=== PATIENT | female | born 1990 | race African-American/Black ===

== ENCOUNTER 2017-03-17 05:14 | Inpatient (IN) ==
--- NOTE | 2017-03-16 16:41 | HISTORY AND PHYSICAL ---
PREOPERATIVE DIAGNOSES: 1. Term . 2. Previous delivery for repeat. CONDITION: Stable. HISTORY OF PRESENT ILLNESS: Ms. Alcantara is a 26-year-old 2, para 1, with estimated date of delivery of 03/24/2017 who presents for a repeat delivery. She has had care since approximately 16 weeks and I do not see her labs documented in the usual place but I now have them, blood type B positive, hepatitis B negative, RPR nonreactive, HIV negative, rubella immune. She passed her glucose tolerance test, and her GBS is negative. PAST MEDICAL HISTORY: Significant for anxiety. PAST SURGICAL HISTORY: delivery. Tonsillectomy. Cholecystectomy. The only other ended in delivery in 2016. ALLERGIES: No allergies. MEDICATIONS: vitamins and iron. FAMILY HISTORY: Noncontributory. SOCIAL HISTORY: She is a former smoker. She quit in July of this year. She is unemployed. Denies alcohol and drug abuse. PHYSICAL EXAMINATION: Weight 197. Blood pressure 122/82. GENERAL APPEARANCE: She is alert and cooperative, in no distress. NECK: Supple. LUNGS: Clear. HEART: Regular sinus rhythm. ABDOMEN: Gravid. On fundal height 39. PELVIC EXAM: Deferred. EXTREMITIES: +2 erythema in the lower extremities. ASSESSMENT: As above. PLAN: Repeat delivery. cc: Jaime Corbett MD
[2017-03-17] MEDS ORDERED: KEFZOL 1 GM/D5W 1 GM/50 ML IVPB IV PRN (05:30)
[2017-03-17] MEDS ORDERED: PEPCID IV ONE ×2 (05:32→07:00)
[2017-03-17] MEDS ORDERED: BICITRA PO ONE ×2 (05:32→07:00)
[2017-03-17] MEDS ORDERED: SODIUM CHLORIDE 0.9% INJ ONE ×2 (05:32→07:00)
[2017-03-17 05:58] LABS: URINE SOURCE VOIDED
[2017-03-17] MEDS: LR 1,000 ML IV SCH ×2 (06:00→06:35)
[2017-03-17 06:07] LABS: BILIRUBIN URINE NEGATIVE (NEGATIVE); BLOOD URINE NEGATIVE (NEGATIVE); CLARITY SL. CLOUDY (CLEAR); COLOR YELLOW; GLUCOSE URINE NEGATIVE (NEGATIVE); LEUKOCYTES URINE TRACE (NEGATIVE); NITRITE URINE NEGATIVE (NEGATIVE); PH URINE 6.5; PROTEIN URINE NEGATIVE (NEGATIVE); SP GRAVITY URINE 1.015; UROBILINOGEN URINE NORMAL
[2017-03-17 06:08] LABS: UR AMPHETAMINES QUAL NONE DETECTED (NONE DETECT); UR BARBITUATES QUAL NONE DETECTED (NONE DETECT); UR BENZODIAZEPIN QUAL NONE DETECTED (NONE DETECT); UR CANNABINOIDS QUAL NONE DETECTED (NONE DETECT); UR COCAINE QUAL NONE DETECTED (NONE DETECT); UR MDMA QUAL NONE DETECTED (NONE DETECT); UR METHADONE QUAL NONE DETECTED (NONE DETECT); UR METHAMPHETAMINE QUAL NONE DETECTED (NONE DETECT); UR OPIATES QUAL NONE DETECTED (NONE DETECT); UR OXYCODONE QUAL NONE DETECTED (NONE DETECT); UR PCP QUAL NONE DETECTED (NONE DETECT); UR TCA QUAL NONE DETECTED (NONE DETECT)
[2017-03-17 06:08] LABS: BASO% 0.1 % (0.0-0.8); EOS# 0.06 X1000 (0.0-0.7); EOS% 0.6 % (0.0-10.0); HEMATOCRIT 33.4 % (37.0-47.0); HEMOGLOBIN 10.7 g/dL (12.0-16.0); IMM GRAN# 0.07 X1000 (0.0-0.04); IMM GRAN% 0.7 % (0.0-0.5); LYMPH# 3.58 X1000 (1.2-3.4); LYMPH% 35.1 % (20.5-51.1); MANUAL DIFF NEEDED? YES; MCH 23.8 PG (27-31); MCV 74.4 FL (81-99); MONO# 0.47 X1000 (0.11-0.59); MONO% 4.6 % (1.7-9.3); MPV 10.5 FL (7.4-10.4); NEUT% 58.9 % (42.2-75.2); PLT 289 X1000 (130-400); RBC 4.49 XMIL (4.2-5.4)
[2017-03-17] MEDS ORDERED: DURAMORPH ONE (07:22)
[2017-03-17 07:42] LABS: LYMPHS 32 % (21-51); MONO 4 % (1-9)
[2017-03-17] MEDS ORDERED: NEO-SYNEPHRINE ONE (07:47)
[2017-03-17] MEDS ORDERED: PITOCIN ONE (07:47)
[2017-03-17] MEDS ORDERED: ROBINUL ONE (07:47)
[2017-03-17] MEDS ORDERED: NS 100 ML ONE (07:47)
[2017-03-17] MEDS ORDERED: FENTANYL ONE (08:09)
[2017-03-17] MEDS ORDERED: TORADOL ONE (08:37)
[2017-03-17] MEDS ORDERED: DULCOLAX PR PRN (08:47)
[2017-03-17] MEDS ORDERED: PITOCIN IM PRN (08:47)
[2017-03-17] MEDS ORDERED: MYLICON PO PRN (08:47)
[2017-03-17] MEDS ORDERED: M-M-R II VACCINE SUBQ ONE (08:47)
[2017-03-17] MEDS ORDERED: PITOCIN 10 UNITS/LR 10 UNIT/1,000 ML IV.SOLN IV SCH (08:47)
[2017-03-17] MEDS ORDERED: BOOSTRIX VACCINE IM ONE (08:47)
[2017-03-17] MEDS ORDERED: TORADOL IV SCH (08:47)
[2017-03-17] MEDS ORDERED: PERCOCET-5 PO PRN (08:47)
[2017-03-17] MEDS ORDERED: DEMEROL PO PRN ×2 (08:47)
[2017-03-17] MEDS ORDERED: HYDROXYZINE PO PRN (08:47)
[2017-03-17] MEDS ORDERED: PHENERGAN IM PRN (08:47)
[2017-03-17] MEDS ORDERED: HYDROXYZINE IM PRN (08:47)
[2017-03-17] MEDS ORDERED: PITOCIN 20 UNITS/LR 20 UNITS/1,000 ML IV.SOLN IV ONE (08:47)
[2017-03-17] MEDS ORDERED: DEMEROL IM PRN (08:47)
[2017-03-17] MEDS ORDERED: AMBIEN PO PRN (08:47)
[2017-03-17] MEDS ORDERED: BENADRYL IV PRN (09:01)
[2017-03-17] MEDS ORDERED: ZOFRAN ODT PO PRN (09:01)
[2017-03-17] MEDS ORDERED: ZOFRAN IV PRN ×2 (09:01)
[2017-03-17] MEDS ORDERED: NARCAN INJ PRN (09:01)
[2017-03-17] MEDS ORDERED: TORADOL IV PRN (09:02)
[2017-03-17] MEDS ORDERED: MORPHINE IV PRN (09:02)
[2017-03-17] MEDS: PERCOCET-10 PO PRN ×2 (11:43→18:14)
--- NOTE | 2017-03-17 15:58 | OPERATIVE NOTE ---
PROCEDURE DATE : 03/17/2017 PREOPERATIVE DIAGNOSES: 1. Intrauterine at 39 weeks. 2. Previous section, for delivery. POSTOPERATIVE DIAGNOSES: 1. Intrauterine at 39 weeks. 2. Previous section, for delivery. PROCEDURE PERFORMED: Repeat low transverse section. SURGEON: Dr. Corbett ANESTHESIA: Spinal done by Dr. Charles. FINDINGS: Viable male . Fundus, tubes and ovaries appeared normal. ESTIMATED BLOOD LOSS: 500 mL. COMPLICATIONS: None. PATHOLOGY: None. DESCRIPTION OF PROCEDURE: Please refer to Ms. Alcantara's records and [facility]. She was admitted this morning, and all questions were answered. She was brought to the operating room where spinal anesthesia was administered. Then a Mckinnon catheter was placed, and she was prepped and draped in a sterile fashion. Adequate anesthesia was verified to T10 level. Then a Pfannenstiel skin incision was made across the old scar, through the subcuticular tissue to the fascia. Cut on the fascia was extended laterally with curved Deleon. The peritoneum was entered. The abdominal cavity was entered bluntly, and muscle and peritoneum were pulled to the side. Hysterotomy incision was made in the lower uterine segment in the midline, then extended by pulling cephalad and caudad. The infant was delivered occiput anterior. Thin meconium noted, nonparticulate. One the infant delivered, the uterus was exteriorized and massaged to deliver the placenta. The placenta delivered. Then membranes were teased out. The uterine cavity was vigorously wiped to remove any remaining tissue. Once this was done, the hysterotomy incision was closed in a single layer of 1 chromic running and locking. Once this was done, the uterus was put back in the abdomen and again noted the fundus, tubes and ovaries appeared normal. There was some oozing away from the incision, so Surgicel was placed with good result. Then the bladder was allowed to fall into place. The peritoneum was reapproximated with chromic, muscle plicated in the midline with interrupted chromic. The fascia was reapproximated with interrupted stitches of 0 Polysorb and then a running, nonlocking stitch of 0 Polysorb. Subcutaneous tissue was irrigated. Vasiliy's fascia was closed with 3-0 chromic, and the skin was closed with 4-0 Biosyn in a subcuticular stitch. All counts were correct. She was taken to her room for recovery. cc: Jaime Corbett MD
[2017-03-17] MEDS: MYLICON PO SCH (20:37)
[2017-03-17] MEDS: PERICOLACE PO SCH (20:38)
[2017-03-17] MEDS ORDERED: LR 1,000 ML ONE (23:15)
[2017-03-18] MEDS: PERCOCET-10 PO PRN ×5 (02:03→22:38)
[2017-03-18 05:59] LABS: MANUAL DIFF NEEDED? NO
[2017-03-18 06:13] LABS: BASO% 0.1 % (0.0-0.8); EOS# 0.09 X1000 (0.0-0.7); EOS% 0.8 % (0.0-10.0); HEMATOCRIT 29.4 % (37.0-47.0); HEMOGLOBIN 9.3 g/dL (12.0-16.0); IMM GRAN# 0.04 X1000 (0.0-0.04); IMM GRAN% 0.4 % (0.0-0.5); LYMPH# 2.63 X1000 (1.2-3.4); MCHC 31.6 g/dL (33-37); MCV 75.8 FL (81-99); MONO# 0.58 X1000 (0.11-0.59); MONO% 5.1 % (1.7-9.3); NEUT% 70.6 % (42.2-75.2); PLT 236 X1000 (130-400); RBC 3.88 XMIL (4.2-5.4)
[2017-03-18] MEDS: PRECARE PO SCH (08:22)
[2017-03-18] MEDS: MOTRIN PO PRN ×2 (08:22→17:17)
[2017-03-18] MEDS: MYLICON PO SCH ×4 (08:22→19:49)
[2017-03-18] MEDS ORDERED: LR 1,000 ML IV SCH (08:40)
[2017-03-18] MEDS: PERICOLACE PO SCH (19:49)
--- NOTE | 2017-03-18 20:43 | PROGRESS NOTE ---
DATE: 03/18/2017 SUBJECTIVE: She is postop day 1. Ms. Alcantara underwent a repeat delivery yesterday morning. Since that time she has done well. She has been advanced on her diet and ambulation without difficulty. States she has no issues. OBJECTIVE: Vital signs stable. She is afebrile. She is alert and cooperative, no acute distress. Neck supple. Lungs clear. Heart regular sinus rhythm. Abdomen is distended. Uterus is firm though. Incision is dry and intact. No cyanosis, clubbing, edema in her extremities. LABS: Hemoglobin 9.3. PLAN: Will continue with routine and postop care. Expect discharge in the morning. cc: Jaime Corbett MD
[2017-03-19] MEDS: MOTRIN PO PRN ×3 (00:50→21:04)
[2017-03-19] MEDS: PERCOCET-10 PO PRN ×4 (00:52→21:04)
[2017-03-19] MEDS: PERICOLACE PO SCH ×2 (02:45→21:04)
[2017-03-19] MEDS: MYLICON PO SCH ×6 (02:45→21:18)
[2017-03-19] MEDS: PRECARE PO SCH (10:39)
--- NOTE | 2017-03-19 20:24 | PROGRESS NOTE ---
DATE: 03/19/2017 SUBJECTIVE: She is postop day 2. She is without complaints except for abdominal pain. She is tolerating p.o., ambulating, and voiding. OBJECTIVE: Vital signs: Are stable. She is afebrile. General: She is alert and cooperative. Does not appear to be in any major distress, maybe mild distress. Neck: Supple. Lungs: Clear. Heart: Regular sinus rhythm. Abdomen: Is distended. Incision is dry and intact. Extremities: +2 lower extremity edema. LABORATORY: No new laboratory values for today. ASSESSMENT: Postop and day 2. PLAN: The patient is not willing to go home today. She feels like she will be able to go in the morning, so we will hold discharge until tomorrow. cc: Jaime Corbett MD
[2017-03-20] MEDS: PERCOCET-10 PO PRN ×2 (03:44→08:33)
[2017-03-20 08:19] VITALS: BP 120/83
[2017-03-20] MEDS: PRECARE PO SCH (08:34)
[2017-03-20] MEDS: MYLICON PO SCH (08:34)
== END 2017-03-20 12:15 | disposition home or self-care (01) ==
LOC: P.LD 05:14 → P.WC 11:34
PROVIDERS: ADMIT Obstetrics & Gynecology; ATTEND Obstetrics & Gynecology